=== PATIENT | female | born 1980 | race Caucasian/White ===

== ENCOUNTER → 2016-05-27 | Outpatient (CLI) | payer OTHER ==
--- NOTE | 2016-05-28 03:01 | REP ---
Clinical: Productive cough. Technique: PA and lateral. Comparison: 03/02/2016. Findings: Left basilar and possible medial right middle lobe atelectasis is suggested. No effusion. No pneumothorax. Mediastinum and cardiac silhouette normal. Skeletal structures intact. Impression: Left basilar and possible right middle lobe atelectasis. Signed by Reji Willis MD 05/28/2016 02:52 A
== END ==
LOC: M LRY 12:03
PROVIDERS: ATTEND Physician Assistant
DX: J98.11 Atelectasis (principal); J20.9 Acute bronchitis, unspecified

== ENCOUNTER → 2016-09-02 | Outpatient (REF) | payer OTHER | LOC: M LAB REF 13:28 | PROVIDERS: ATTEND Advanced Practice Midwife | DX: Z12.4 Encounter for screening for malignant neoplasm of cervix (principal); R87.618 Other abnormal cytological findings on specimens from cervix uteri ==

== ENCOUNTER → 2017-09-21 | Outpatient (REF) | payer OTHER ==
[2017-09-23 14:16] LABS: HPV HYBRID CAPTURE II Negative (Negative)
== END ==
LOC: M LAB REF 13:59
DX: Z11.51 Encounter for screening for human papillomavirus (HPV) (principal)
CPT/HCPCS: 88142

== ENCOUNTER → 2019-06-12 | Outpatient (CLI) | payer OTHER ==
--- NOTE | 2019-06-12 08:57 | REP ---
Clinical: Abdominal pain and nausea. Technique: Real time merritt scale ultrasound examination using curved array transducer. Findings: The liver is mildly echogenic suggesting mild fatty infiltration. No focal hepatic lesion identified. Visualized portions of the pancreas are unremarkable but limited due to interposed bowel gas. The gallbladder is normal and without gallstones, wall thickening, or pericholecystic fluid. No biliary ductal dilatation is appreciated and the common bile duct measures 5.6 mm diameter. The right kidney is normal in reniform shape without hydronephrosis and measures 10.2 x 4.8 x 4.6 cm. No ascites in the visualized right upper quadrant. Impression: Mild hepatic steatosis. Electronically Signed by Reji Willis MD 06/12/2019 08:47 A
== END ==
LOC: M RAD 07:19
PROVIDERS: ATTEND Internal Medicine Gastroenterology
DX: R11.0 Nausea (principal)

== ENCOUNTER → 2019-06-21 | Outpatient (CLI) | payer OTHER ==
--- NOTE | 2019-06-21 10:00 | REP ---
Gastric emptying nuclear scintigraphy: History: Gastroparesis. Technique: 1.1 mCi of technetium-99m sulfur colloid was ingested in two scrambled eggs and 6 ounces of water and sequential anterior and posterior images are acquired for an 89-minute imaging observation period. Regions of interest are drawn around the stomach to plot gastric emptying. Scintigraphic findings: Expected T1/2 is 90 minutes. 36 % emptying is observed in this patient during the 89-minute imaging observation period, for a calculated T1/2 in this patient of 104 minutes. Impression: Normal gastric emptying. Electronically Signed by Parish Godfrey MD 06/21/2019 09:51 A
== END ==
LOC: M RAD 07:24
PROVIDERS: ATTEND Internal Medicine Gastroenterology
DX: R14.2 Eructation (principal); K31.84 Gastroparesis
CPT/HCPCS: 78264; A9541

== ENCOUNTER → 2019-06-30 | Outpatient (CLI) | payer OTHER ==
--- NOTE | 2019-06-30 10:41 | REP ---
Hepatobiliary scan and gallbladder ejection fraction: History: Nausea. Eructation. Technique: 6.6 mCi of technetium-99m mebrofenin was injected and sequential anterior images are acquired. 65 minutes after the mebrofenin injection, the patient consumed 8 ounces Ensure and an additional 60 minutes of imaging was acquired. Regions of interest are plotted around the gallbladder. Findings: The initial hepatocellular parenchymal uptake phase is normal and homogeneous. Intra- and extra-hepatic bile ducts are labeled by the 15 -minute image. The gallbladder is first labeled on the 15 -minute image. There is normal washout from the liver parenchyma into the gallbladder and small intestine on subsequent images. The gallbladder ejection fraction is 54 %. Values greater than 35 % are considered normal with this technique. Impression: Normal hepatobiliary scan and normal gallbladder ejection fraction. Electronically Signed by Parish Godfrey MD 06/30/2019 10:32 A
== END ==
LOC: M RAD 07:21
PROVIDERS: ATTEND Internal Medicine Gastroenterology
DX: K82.9 Disease of gallbladder, unspecified (principal); R41.2 Retrograde amnesia; R11.0 Nausea
CPT/HCPCS: 78227; A9537

== ENCOUNTER → 2021-03-10 | Outpatient (CLI) | payer OTHER ==
[2021-03-10 17:36] LABS: HEMATOCRIT 37.5 % (36.0-47.0); MEAN CORPUSCULAR HEMOGLOBIN 29.3 pg (27.0-33.0); MEAN CORPUSCULAR VOLUME 91.7 fl (80.0-96.0); PLATELET COUNT, AUTOMATED 280 10^3/uL (150-450); RED BLOOD COUNT 4.09 10^6/uL (4.00-5.40); WHITE BLOOD COUNT 12.8 10^3/uL (4.0-10.0)
[2021-03-10 18:05] LABS: TOTAL PROTEIN,RANDOM URINE 25.3 MG/DL (0.0-12.0)
[2021-03-10 18:07] LABS: ALBUMIN 3.1 GM/DL (3.2-5.2); ALT/SGPT 20 U/L (12-78); BILIRUBIN,TOTAL 0.2 MG/DL (0.2-1.0); BLOOD UREA NITROGEN 6 MG/DL (7-18); CARBON DIOXIDE LEVEL 26 MEQ/L (21-32); CHLORIDE LEVEL 104 MEQ/L (98-107); CREATININE FOR GFR 0.51 MG/DL (0.55-1.30); GLOMERULAR FILTRATION RATE > 60.0 (>60); GLUCOSE CHALLENGE TEST 1 HOUR 136 MG/DL (LESS THAN 140); GLUCOSE, FASTING 136 MG/DL (70-100); POTASSIUM SERUM 3.9 MEQ/L (3.5-5.1); SODIUM LEVEL 137 MEQ/L (136-145); TOTAL PROTEIN 6.5 GM/DL (6.4-8.2)
[2021-03-10 20:15] LABS: GC DNA AMPLIFICATION NEGATIVE (NEGATIVE)
== END ==
LOC: M PLALAB 14:43
PROVIDERS: ATTEND Obstetrics & Gynecology
DX: Z34.92 Encounter for supervision of normal pregnancy, unspecified, second trimester (principal)

== ENCOUNTER → 2021-03-13 | Outpatient (CLI) | payer OTHER | LOC: M LAB 08:06 | PROVIDERS: ATTEND Obstetrics & Gynecology | DX: O99.810 Abnormal glucose complicating pregnancy (principal); Z3A.00 Weeks of gestation of pregnancy not specified ==

== ENCOUNTER → 2021-04-02 | Outpatient (CLI) | payer OTHER ==
--- NOTE | 2021-04-02 09:58 | REP ---
INDICATION: F/U ANATOMY COMPARISON: None. TECHNIQUE: Transabdominal obstetrical ultrasound with color Doppler evaluation. FINDINGS: Examination demonstrates a single live intrauterine in cephalic presentation. motion is identified by technologist. Placenta is noted anterior and grade 1 without evidence for placenta previa or abruption. Amniotic fluid volume is normal. Cervix appears closed. Selected gestational age: 29 weeks 3 days with CARIE 06/15/2021. Gestational age by current measurements 30 weeks 2 days with CARIE 06/09/2021. FHR equals 156 beats per minute. FIDELIA: 16.4 cm Estimated weight 1587 grams (64thpercentile). Anatomical assessment demonstrates normal structures including cranium, choroid plexus, cavum, cerebellum/posterior fossa, facial features, lungs, four-chamber heart/right ventricular outflow tract, diaphragm, stomach, cord insertion/three-vessel cord, kidneys/bladder, and extremities. IMPRESSION: Single live intrauterine in cephalic presentation demonstrating appropriate interval growth. Limited evaluation of the left cardiac ventricular outflow tract and spine due to positioning. Remainder of the anatomical assessment is complete and normal. <Electronically signed by Reji Willis > 04/02/21 [id number]
== END ==
LOC: M WHC 07:03
PROVIDERS: ATTEND Obstetrics & Gynecology
DX: O26.843 Uterine size-date discrepancy, third trimester (principal)

== ENCOUNTER → 2021-04-30 | Outpatient (CLI) | payer OTHER ==
--- NOTE | 2021-04-30 13:58 | REP ---
INDICATION: PRE-EXISTING HYPERTENSION. COMPARISON: 04/02/2021 TECHNIQUE: Transabdominal scanning FINDINGS: Multiple ultrasonographic images of the gravid uterus shows a single living intrauterine gestation in the breech presentation. Doppler interrogation of the heart shows a heart rate of 136 beats per minute. The placenta is anterior not low lying. The cervix measures 3.1 cm in length and is closed. The subjective amniotic fluid volume is within normal limits. The calculated amniotic fluid index is 14.4 with an expected range of 8.2-24.6. Doppler interrogation of the umbilical artery shows an A\B ratio of 2.39. This is within the normal range. biophysical profile score is 2 for breathing, 2 for movement, 2 for tone, and 2 for amniotic fluid volume giving a sum total of 8/8. BPD: 8.7 cm 34 weeks 6 days AC: 34.0 cm 39 weeks 0 days AC: 32.2 cm 36 weeks 0 days FL: 6.0 cm 31 weeks 3 days The estimated weight is 2575 g which is at the 86th percentile. The left ventricular outflow tract was again seen suboptimally. The spine was seen to be unremarkable. IMPRESSION: Single living intrauterine gestation as described above with an estimated gestational age of 34 weeks 2 days via composite criteria and an estimated date of delivery of 06/09/2021 by today's exam. A follow-up exam is recommended to once again re-evaluate the left ventricular outflow tract. <Electronically signed by Abhishek Snyder > 04/30/21 [id number]
== END ==
LOC: M WHC 11:48
PROVIDERS: ATTEND Obstetrics & Gynecology
DX: O10.913 Unspecified pre-existing hypertension complicating pregnancy, third trimester (principal)

== ENCOUNTER → 2021-05-14 | Outpatient (CLI) | payer OTHER | LOC: M LABSMTC 11:43 | PROVIDERS: ATTEND Pediatrics | DX: Z20.822 Contact with and (suspected) exposure to COVID-19 (principal) ==

== ENCOUNTER → 2021-05-14 | Outpatient (REF) | payer OTHER | LOC: M SFHCWAGY 15:04 | PROVIDERS: ATTEND Specialist | DX: O10.013 Pre-existing essential hypertension complicating pregnancy, third trimester (principal); Z3A.00 Weeks of gestation of pregnancy not specified ==

== ENCOUNTER → 2021-05-22 | Outpatient (CLI) | payer OTHER | LOC: M WHC 13:47 | PROVIDERS: ATTEND Advanced Practice Midwife | DX: O10.013 Pre-existing essential hypertension complicating pregnancy, third trimester (principal); Z3A.38 38 weeks gestation of pregnancy ==

== ENCOUNTER → 2022-12-14 | Outpatient (REF) | payer OTHER ==
[~2022-12-14] MED LIST: ACET25TA12 PO; IBUP80TA PO; LABE200T5 PO; OMEP40CA4 PO; OXYC1TAB23 PO; PRENTAB9 PO
== END ==
LOC: M SFHCWAGY 17:12
PROVIDERS: ATTEND Nurse Practitioner Family
DX: Z12.4 Encounter for screening for malignant neoplasm of cervix (principal); Z01.419 Encounter for gynecological examination (general) (routine) without abnormal findings; Z77.9 Other contact with and (suspected) exposures hazardous to health

== ENCOUNTER → 2022-12-14 | Outpatient (CLI) | payer OTHER | LOC: M WHC 13:27 | PROVIDERS: ATTEND Nurse Practitioner Family | DX: Z12.31 Encounter for screening mammogram for malignant neoplasm of breast (principal); N63.41 Unspecified lump in right breast, subareolar; Z80.3 Family history of malignant neoplasm of breast ==

== ENCOUNTER → 2022-12-22 | Outpatient (CLI) | payer OTHER | LOC: M WHC 14:52 | PROVIDERS: ATTEND Nurse Practitioner Family | DX: R92.2 Inconclusive mammogram (principal) ==

== ENCOUNTER 2023-10-21 11:47 | Day surgery (SDC) | payer OTHER ==
[~2023-10-21] VITALS: Ht 163.8 cm; Wt 99.2 kg
[~2023-10-21 11:47] MED LIST changes: +LABE20TAB PO; +LISI20TA33 PO; +LO LTAB PO; +MECL-86 PO; +NS 1,000 ML IV ONE
[2023-10-21] MEDS ORDERED: LIDOCAINE 2% 100MG/5ML SDV (FOR ANES.) As Ordered ONE (13:27)
[2023-10-21] MEDS ORDERED: propofoL 200 MG/20 ML VIAL As Ordered ONE (13:27)
[2023-10-21 15:27] VITALS: TEMP 97.7
[2023-10-21 15:40] VITALS: BP 127/70; O2SAT 98
== END 2023-10-21 15:57 | disposition home or self-care (01) ==
LOC: M OPP 11:47
PROVIDERS: ATTEND Internal Medicine Gastroenterology
DX: Z85.038 Personal history of other malignant neoplasm of large intestine (principal); Z15.09 Genetic susceptibility to other malignant neoplasm; K63.5 Polyp of colon; K57.30 Diverticulosis of large intestine without perforation or abscess without bleeding; K64.8 Other hemorrhoids; K31.89 Other diseases of stomach and duodenum; K29.70 Gastritis, unspecified, without bleeding; K31.7 Polyp of stomach and duodenum; F17.290 Nicotine dependence, other tobacco product, uncomplicated; I10 Essential (primary) hypertension; R12 Heartburn; Z79.01 Long term (current) use of anticoagulants; Z79.899 Other long term (current) drug therapy; Z88.8 Allergy status to other drugs, medicaments and biological substances

== ENCOUNTER → 2024-02-22 | Outpatient (REF) | payer OTHER ==
[~2024-02-22] MED LIST changes: -NS 1,000 ML IV ONE
[2024-02-24 15:48] LABS: HPV APTIMA Not Detected (Not Detected)
== END ==
LOC: M SFHCWAGY 15:23
PROVIDERS: ATTEND Nurse Practitioner Family
DX: Z12.4 Encounter for screening for malignant neoplasm of cervix (principal); R87.610 Atypical squamous cells of undetermined significance on cytologic smear of cervix (ASC-US)

== ENCOUNTER → 2024-04-10 | Outpatient (CLI) | payer OTHER | LOC: M WHC 13:40 | PROVIDERS: ATTEND Nurse Practitioner Family | DX: R92.2 Inconclusive mammogram (principal); N92.0 Excessive and frequent menstruation with regular cycle; D25.9 Leiomyoma of uterus, unspecified ==

== ENCOUNTER → 2024-05-15 | Outpatient (CLI) | payer OTHER | LOC: M WHC 10:33 | PROVIDERS: ATTEND Nurse Practitioner Family | DX: R92.2 Inconclusive mammogram (principal) ==

== ENCOUNTER → 2024-06-01 | Outpatient (CLI) | payer OTHER ==
[2024-06-01 09:00] VITALS: TEMP 98.3
[2024-06-01 10:14] VITALS: BP 138/82; O2SAT 98
== END ==
LOC: M WHCPRO 08:38
PROVIDERS: ATTEND Nurse Practitioner Family
DX: R92.8 Other abnormal and inconclusive findings on diagnostic imaging of breast (principal); N63.12 Unspecified lump in the right breast, upper inner quadrant; N63.13 Unspecified lump in the right breast, lower outer quadrant

== ENCOUNTER → 2024-08-07 | Outpatient (CLI) | payer OTHER ==
[~2024-08-07] MED LIST changes: +PROHANCE 279.3MG/ML 15ML VIAL ONE; +PROHANCE 279.3MG/ML 5ML VIAL ONE
== END ==
LOC: M PLAIMG 07-24 11:08
PROVIDERS: ATTEND Surgery
DX: D24.1 Benign neoplasm of right breast (principal); Z15.01 Genetic susceptibility to malignant neoplasm of breast
CPT/HCPCS: 77049; A9576

== ENCOUNTER → 2024-12-04 | Outpatient (CLI) | payer OTHER ==
[~2024-12-04] MED LIST changes: -PROHANCE 279.3MG/ML 15ML VIAL ONE; -PROHANCE 279.3MG/ML 5ML VIAL ONE
== END ==
LOC: M WHC 11:39
PROVIDERS: ATTEND Nurse Practitioner Family
DX: R92.8 Other abnormal and inconclusive findings on diagnostic imaging of breast (principal); N60.31 Fibrosclerosis of right breast

== ENCOUNTER → 2025-04-12 | Outpatient (CLI) | payer BC ==
[~2025-04-12] MED LIST changes: -LABE200T5 PO; +LABE200T86 PO
== END ==
LOC: M WHC 14:14
PROVIDERS: ATTEND Nurse Practitioner Family
DX: Z12.31 Encounter for screening mammogram for malignant neoplasm of breast (principal); R92.323 Mammographic fibroglandular density, bilateral breasts